=== PATIENT | female | born 1950 | race Caucasian/White ===

== ENCOUNTER 2024-09-16 17:22 | Emergency (ER) | payer OTHER ==
[2024-09-16 17:32] VITALS: BP 153/84; PULSE 87; RESP 17; TEMP 97.5; BMI 30.8
[2024-09-16 19:35] LABS: BASO % 0.7 % (0-2.0); EOS % 2.6 % (0-4.5); HEMOGLOBIN 13.4 GM/dL (10.7-15.3); LYMPH % 29.3 % (8-40); MCH 30.7 pg (25.7-33.7); MCHC 33.5 g/dl (32.0-36.0); MEAN CELL VOLUME 91.6 fl (80-96); MEAN PLT VOLUME 9.2 fl (7.5-11.1); MONO % 7.9 % (3.8-10.2); NEUT % 59.5 % (42.8-82.8); PLATELET COUNT 232 10^3/uL (134-434); RBC 4.37 M/mm3 (3.60-5.2); RDW 13.8 % (11.6-15.6); WHITE BLOOD COUNT 7.6 K/mm3 (4.0-10.0)
[2024-09-16 19:53] LABS: POTASSIUM 3.8 mmol/L (3.5-5.1)
[2024-09-16 19:55] LABS: ALBUMIN 4.3 g/dl (3.4-5.0); BLOOD UREA NITROGEN 20.3 mg/dL (7-18); CALCIUM 9.8 mg/dL (8.5-10.1)
[2024-09-16 19:59] LABS: CREATININE 0.8 mg/dL (0.55-1.3)
[2024-09-16 20:00] LABS: BILIRUBIN,TOTAL 0.4 mg/dL (0.2-1); TOT PROT 8.1 g/dl (6.4-8.2)
[2024-09-16 20:12] LABS: INR 0.97 (0.83-1.09)
[2024-09-16 20:15] LABS: ACTIVATED PTT 33.3 SECONDS (25.2-36.5)
[2024-09-16 21:48] LABS: EPI CELLS 11 /uL (0-25.1); HYALINE CASTS 4 /uL (0-3.1); PH,URINE 5.5 (5.0-8.0); URINE APPEARANCE CLOUDY; URINE BACTERIA 147 /uL (0-1359); URINE BILIRUBIN NEGATIVE (NEGATIVE); URINE COLOR YELLOW; URINE GLUCOSE (UA) NEGATIVE (NEGATIVE); URINE KETONE NEGATIVE (NEGATIVE); URINE LEUK ESTERASE 3+ (NEGATIVE); URINE NITRITE NEGATIVE (NEGATIVE); URINE PROTEIN TRACE (NEGATIVE); URINE RBC 371 /uL (0-23.9); URINE WBC 756 /uL (0-25.8)
== END 2024-09-16 23:08 | disposition home or self-care (01) ==
LOC: JER 17:22
DX: N93.9 Abnormal uterine and vaginal bleeding, unspecified (principal)
CPT/HCPCS: 36415; 76830-TC; 80053; 81003; 85025; 85610; 85730; 86850; 86900; 86901; 99284-25

== ENCOUNTER 2025-04-06 05:08 | Day surgery (SDC) | payer OTHER ==
[2025-03-31 11:38] VITALS: BMI 31.5
[2025-04-06] MEDS ORDERED: ONDANSETRON 4 MG/2 ML VIAL IVPUSH PRN (08:22)
[2025-04-06] MEDS ORDERED: oxyCODONE HCL 5 MG TABLET PO PRN (08:22)
[2025-04-06] MEDS ORDERED: LACTATED RINGERS SOLUTION 1,000 ML IV SCH (08:30)
[2025-04-06] MEDS ORDERED: MIDAZOLAM HCL 2 MG/2 ML SINGLE DOSE VIAL ONE ×2 (08:44)
[2025-04-06] MEDS ORDERED: ONDANSETRON 4 MG/2 ML VIAL ONE (08:46)
[2025-04-06] MEDS ORDERED: PROPOFOL 20 ML ONE (08:49)
[2025-04-06] MEDS ORDERED: LIDOCAINE HCL/PF 2% SDV 5ML VIAL ONE (08:49)
[2025-04-06] MEDS: ceFAZolin SODIUM 1 GM VIAL IVPB ONE ×2 (08:56)
[2025-04-06] MEDS ORDERED: ceFAZolin SODIUM 1 GM VIAL ONE (08:56)
[2025-04-06 10:15] VITALS: RESP 20
[2025-04-06 10:40] VITALS: BP 117/70; PULSE 72; TEMP 97
== END 2025-04-06 10:53 | disposition home or self-care (01) ==
LOC: JASU-SURG 05:08
PROVIDERS: ATTEND Urology
PROC: 0TVC8ZZ Restriction of Bladder Neck, Via Natural or Artificial Opening Endoscopic (ICD-10-PCS; principal; 2025-04-06 08:30)
DX: N39.3 Stress incontinence (female) (male) (principal); N36.42 Intrinsic sphincter deficiency (ISD)
CPT/HCPCS: 51715; L8606; 94760